=== PATIENT | female | born 1930 | race American Indian/Alaskan Native ===

== ENCOUNTER 2016-04-18 15:12 | Outpatient (CLI) | payer MEDICARE ==
--- NOTE | 2016-04-19 09:21 | Ultrasound Report ---
ULTRASOUND RENAL INDICATION: Chronic kidney disease. COMPARISON: None similar at this institution. FINDINGS: Renal sonography somewhat limited due to patient's body habitus, though suggests normal renal cortical echogenicity. Grossly preserved contours. No hydronephrosis. Right kidney measures 10.4 x 5.4 x 5.7 cm with cortical thickness of 1.4 cm. Left kidney estimated at 10.9 x 4 x 4.1 cm with cortical thickness of 1.3 cm. Urinary bladder suboptimally distended and assessed. CONCLUSION: No acute renal sonographic abnormality, as described. Thank you for the opportunity to participate in this patient's care.
== END 2016-04-18 15:13 | disposition home or self-care (01) ==
LOC: US 15:12
PROVIDERS: ATTEND Internal Medicine Nephrology
DX: N18.3 Chronic kidney disease, stage 3 (moderate) (principal); N32.89 Other specified disorders of bladder
CPT/HCPCS: 76770

== ENCOUNTER 2020-07-11 11:26 | Outpatient (CLI) | payer MEDICARE ==
--- NOTE | 2020-07-11 14:54 | XRay Report ---
CHEST 1 VIEW INDICATION: DYSPNEA ON EXERTION. COMPARISON: None FINDINGS: Support devices: Cardiac loop recorder device overlies the heart shadow. Heart: Within normal limits. Lungs/Pleura: No acute air space or interstitial disease. Additional findings: None. IMPRESSION: No acute findings. Signer Name: Rafiq Heaton Jr, MD Signed: 07/11/2020 2:50 PM Workstation Name: [id number]
--- NOTE | 2020-07-11 15:02 | Nuclear Medicine Report ---
NM perfusion only lung scan INDICATION / CLINICAL INFORMATION: Shortness of breath. TRACER: Technetium 99m MAA 4.8 mCi injection COMPARISON: Chest x-ray performed earlier the same day. FINDINGS: Following injection the above tracer, imaging was performed in 8 projections. Imaging of relatively h omogeneous. No suspicious perfusion defect. IMPRESSION: No suspicious perfusion defect. Signer Name: Murtaza Pichardo MD Signed: 07/11/2020 2:58 PM Workstation Name: [id number]
== END 2020-07-11 11:27 | disposition home or self-care (01) ==
LOC: CT 11:26
PROVIDERS: ATTEND Internal Medicine Cardiovascular Disease
DX: R06.09 Other forms of dyspnea (principal); R79.89 Other specified abnormal findings of blood chemistry
CPT/HCPCS: 71045; 78580; A9540